=== PATIENT | female | born 1950 | race Caucasian/White ===

== ENCOUNTER → 2024-04-23 12:50 | Outpatient (REF) | payer OTHER, SELFPAY | LOC: RCS 12:50 | PROVIDERS: ATTENDING PHYSICIAN Internal Medicine Cardiovascular Disease; FAMILY PHYSICIAN Nurse Practitioner Primary Care | DX: I50.20 Unspecified systolic (congestive) heart failure (principal) | CPT/HCPCS: 93306; Q9950 ==

== ENCOUNTER → 2024-12-14 14:19 | Outpatient (REF) | payer OTHER, SELFPAY | LOC: WDC 14:19 | PROVIDERS: ATTENDING PHYSICIAN Nurse Practitioner Primary Care | DX: Z13.820 Encounter for screening for osteoporosis (principal); Z12.31 Encounter for screening mammogram for malignant neoplasm of breast | CPT/HCPCS: 77063; 77067; 77080 ==

== ENCOUNTER → 2025-07-03 11:00 | Outpatient (REF) | payer OTHER, SELFPAY | LOC: RCS 11:00 | PROVIDERS: ATTENDING PHYSICIAN Internal Medicine Cardiovascular Disease; FAMILY PHYSICIAN Nurse Practitioner Primary Care | DX: I50.20 Unspecified systolic (congestive) heart failure (principal); I48.0 Paroxysmal atrial fibrillation | CPT/HCPCS: 93306; Q9950 ==

== ENCOUNTER 2025-07-17 06:14 | Day surgery (SDC) | payer OTHER, SELFPAY ==
[2025-07-17 07:16] LABS: Glucose - Point of Care 101 mg/dl (70-99)
[2025-07-17 07:32] VITALS: BMI 46.8
[2025-07-17 07:33] VITALS: BMI 46.8
[2025-07-17 07:34] VITALS: BP 103/65
[2025-07-17 08:48] VITALS: BP 125/74
[2025-07-17 09:00] VITALS: BP 138/83
[2025-07-17 09:15] VITALS: BP 121/84
== END 2025-07-17 09:35 | disposition home or self-care (01) ==
LOC: SDS 06:14
PROVIDERS: ATTENDING PHYSICIAN Internal Medicine Gastroenterology
DX: Z12.11 Encounter for screening for malignant neoplasm of colon (principal); D12.2 Benign neoplasm of ascending colon; D12.3 Benign neoplasm of transverse colon; K63.5 Polyp of colon; K55.20 Angiodysplasia of colon without hemorrhage; K64.9 Unspecified hemorrhoids; Z86.0100 Personal history of colon polyps, unspecified
CPT/HCPCS: 45385; 45380; 82962; 88305